=== PATIENT | female | born 1995 | race Caucasian/White ===

== ENCOUNTER 2020-01-06 23:50 | Inpatient (IN) ==
[2020-01-06] MEDS ORDERED: MEPERIDINE 50 MG/1 ML VIAL IV PRN (23:59)
[2020-01-06] MEDS ORDERED: BUTORPHANOL 2 MG/ML VIAL IV PRN (23:59)
[2020-01-06] MEDS ORDERED: ONDANSETRON 4 MG/2 ML VIAL IV PRN (23:59)
[2020-01-07 00:46] LABS: Basophils % 0.2 % (0.0-0.8); Eosinophils # 0.1 10*3/uL (0.0-0.87); Eosinophils % 0.4 % (0.00-10.9); Hematocrit 32.3 VOL% (35.7-47.0); Hemoglobin 10.1 GM/DL (12.0-16.0); Immature Granulocytes % 0.4 %; Immature Granulocytes Absolute 0.05 #; Lymphocytes # 2.8 10*3/uL (1.4-4.0); Lymphocytes % 21.5 % (21.3-54.2); Mean Corpuscular HGB Conc 31.3 GM/DL (32-36); Mean Platelet Volume 11.1 FL (9.6-12.0); Monocytes % 7.1 % (1.7-12.7); Neutrophils % 70.4 % (38.7-73.9); Platelet Count 213 T/CUMM (130-400); White Blood Count 12.8 T/CUMM (4-12)
[2020-01-07] MEDS ORDERED: OXYTOCIN/LR 20 UNIT/1,000 ML BAG IV ONE ×2 (08:29→20:28)
[2020-01-07] MEDS ORDERED: OXYTOCIN/LR 20 UNIT/1,000 ML BAG IV SCH (09:30)
[2020-01-07] MEDS ORDERED: CITRIC ACID/SODIUM CITRATE 30 ML UDCUP PO ONE (09:32)
[2020-01-07] MEDS ORDERED: ONDANSETRON 4 MG/2 ML VIAL IV ONE (09:32)
[2020-01-07] MEDS ORDERED: diphenhydrAMINE 50 MG/1 ML VIAL IV PRN ×2 (09:32)
[2020-01-07] MEDS ORDERED: NALOXONE 0.4 MG/ML VIAL IV PRN (09:32)
[2020-01-07] MEDS ORDERED: FAMOTIDINE 20 MG/2 ML VIAL IV ONE (09:32)
[2020-01-07] MEDS ORDERED: LACTATED RINGERS 1,000 ML IV ONE (09:32)
[2020-01-07] MEDS ORDERED: ePHEDrine 50 MG/ML AMP IV PRN (09:32)
[2020-01-07] MEDS ORDERED: hydrOXYzine HCL 25 MG/1 ML VIAL IM PRN (09:32)
[2020-01-07] MEDS ORDERED: PROMETHAZINE 25 MG/1 ML VIAL IM ONE (09:32)
[2020-01-07] MEDS ORDERED: fentaNYL 2 MCG/ROPIV 0.2% EPID 100 ML EPIDURAL SCH (10:00)
[2020-01-07] MEDS: LACTATED RINGERS 1,000 ML IV SCH ×2 (11:00→18:25)
[2020-01-07 12:22] LABS: Apearance,Urine CLEAR (Clear); Bilirubin,Urine Negative (Negative); Blood, Urine Negative (Negative); Glucose,Urine (UA) Negative (Negative); Ketones,Urine Negative (Negative); Mucus,Urine Occasional /LPF (Occasional); Nitrite,Urine Negative (Negative); Protein,Urine Negative; RBC,Urine 9 /HPF (0-4); Squamous Epithelial Cell,Urine Occasional /HPF (0-10); Urine Color Yellow (Yellow); Urine Specific Gravity 1.016 (1.001-1.035); Urine Urobilinogen < 2.0 EU/DL (0.2-1.0); WBC,Urine <1 /HPF (0-6)
[2020-01-07] MEDS ORDERED: ACETAMINOPHEN 500 MG TABLET PO PRN (17:06)
[2020-01-07] MEDS ORDERED: ceFAZolin 3,000 MG in SYRINGE 1 EACH IV ONE (19:09)
[2020-01-07] MEDS ORDERED: PHENYLEPHRINE 1 MG/10 ML SYRINGE IV ONE (19:16)
[2020-01-07] MEDS ORDERED: LIDOCAINE MPF 2% /EPI 20 ML VIAL ONE (19:16)
[2020-01-07] MEDS ORDERED: MORPHINE 10 MG/10 ML VIAL ONE (19:16)
[2020-01-07] MEDS ORDERED: OXYTOCIN 10 UNIT/ML VIAL IM ONE (19:17)
[2020-01-07] MEDS ORDERED: OXYTOCIN/LR 30 UNIT/1,000 ML BAG IV ONE (19:17)
[2020-01-07] MEDS ORDERED: miSOPROStoL 200 MCG TABLET ONE (19:19)
[2020-01-07] MEDS ORDERED: TRANEXAMIC ACID 1,000 MG/10 ML VIAL ONE (19:19)
[2020-01-07] MEDS ORDERED: CARBOPROST TROMETHAMINE 250 MCG/ML AMP IM ONE (19:20)
[2020-01-07] MEDS ORDERED: METHYLERGONOVINE 0.2 MG/1 ML AMP ONE (19:20)
[2020-01-07] MEDS ORDERED: SODIUM CHLORIDE 0.9% 100 ML IV ONE (19:21)
[2020-01-07] MEDS ORDERED: ONDANSETRON 4 MG/2 ML VIAL IV PRN (20:28)
[2020-01-07] MEDS ORDERED: SIMETHICONE CHEW 80 MG TABLET PO PRN (20:28)
[2020-01-07] MEDS ORDERED: RHO(D) IMMUNE GLOBULIN 300 MCG SYRINGE IM ONE (20:28)
[2020-01-07] MEDS ORDERED: MAGNESIUM HYDROXIDE SUSP 30 ML UDCUP PO PRN (20:28)
[2020-01-07] MEDS ORDERED: ACETAMINOPHEN 325 MG TABLET PO PRN (20:28)
[2020-01-07] MEDS ORDERED: LACTATED RINGERS 1,000 ML IV SCH (20:30)
[2020-01-07 20:55] LABS: Cord Arterial Blood HCO3 18.3 MMOL/L
[2020-01-07 20:59] LABS: Cord Venous Blood HCO3 22.7 MMOL/L; Cord Venous Blood PCO2 46.2 MMHG; Cord Venous Blood PO2 26.9
[2020-01-07] MEDS: KETOROLAC 30 MG/1 ML VIAL IV SCH (21:47)
[2020-01-08] MEDS: ceFAZolin 1,000 MG in SYRINGE 1 EACH IV SCH ×2 (03:17→11:06)
[2020-01-08] MEDS: KETOROLAC 30 MG/1 ML VIAL IV SCH ×3 (03:20→15:45)
[2020-01-08 05:50] LABS: Basophils % 0.3 % (0.0-0.8); Eosinophils % 0.2 % (0.00-10.9); Hematocrit 30.3 VOL% (35.7-47.0); Hemoglobin 9.4 GM/DL (12.0-16.0); Immature Granulocytes % 0.7 %; Lymphocytes # 1.8 10*3/uL (1.4-4.0); Lymphocytes % 12.2 % (21.3-54.2); Mean Corpuscular Volume 96.5 FL (87-102); Mean Platelet Volume 10.9 FL (9.6-12.0); Monocytes % 7.9 % (1.7-12.7); Neutrophils % 78.7 % (38.7-73.9); Platelet Count 180 T/CUMM (130-400); Red Blood Count 3.14 MC/CUMM (3.8-5.5); Red Cell Distribution Width 15.9 % (9.3-17.3)
[2020-01-08] MEDS: DOCUSATE SODIUM 100 MG CAPSULE PO SCH ×2 (10:21→20:37)
[2020-01-08] MEDS: METOCLOPRAMIDE 10 MG TABLET PO SCH ×3 (10:22→20:37)
[2020-01-08] MEDS: MULTIVITAMIN (PRENATAL) TABLET PO SCH (10:23)
[2020-01-08] MEDS: FERROUS SULFATE 325 MG TABLET PO SCH (10:23)
[2020-01-08] MEDS: IBUPROFEN 800 MG TABLET PO PRN (21:22)
[2020-01-09] MEDS: METOCLOPRAMIDE 10 MG TABLET PO SCH ×2 (03:32→09:34)
[2020-01-09] MEDS: IBUPROFEN 800 MG TABLET PO PRN (06:22)
[2020-01-09 09:17] VITALS: BP 133/77
[2020-01-09] MEDS: DOCUSATE SODIUM 100 MG CAPSULE PO SCH (09:34)
[2020-01-09] MEDS: MULTIVITAMIN (PRENATAL) TABLET PO SCH (09:34)
[2020-01-09] MEDS: FERROUS SULFATE 325 MG TABLET PO SCH (09:34)
[2020-01-09] MEDS ORDERED: DIPH/TET/ACEL PERT BOOSTER VACCINE 0.5 ML VIAL IM ONE (12:41)
== END 2020-01-09 13:30 | disposition home or self-care (01) | DRG 788 ==
LOC: N.LDOUT 23:50 → N.LD 23:53 → N.OB 01-08 00:29
PROVIDERS: ADMIT Obstetrics & Gynecology; ATTEND Obstetrics & Gynecology
PROC: LDCSECT (ICD-10-PCS; 2020-01-07 19:30)